=== PATIENT | male | born 1975 | race Caucasian/White ===

== ENCOUNTER 2020-04-20 12:31 | Emergency (ER) | payer OTHER ==
[~2020-04-20] VITALS: Ht 177.8 cm; Wt 90.4 kg
[2020-04-20] MEDS ORDERED: ASPIRIN CHEWABLE 81 MG TABLET. PO ONE (12:45)
--- NOTE | 2020-04-20 13:16 | RAD ---
Exam performed: 2 views of the chest. Indication: Reason: chest pain / Spl. Instructions: / History: Date of Service: 04/20/2020 12:36 PM . Comparison : None available Findings: PA and lateral radiographs of the chest reveal a normal cardiomediastinal contour. The lungs are clear. No pleural fluid is seen. The visualized osseous structures are unremarkable. Impression: No acute cardiopulmonary process seen. Electronically signed by: Elise Woods MD (04/20/2020 1:13 PM) [facility]
[2020-04-20] MEDS ORDERED: diazePAM 5 MG TABLET. PO ONE (14:45)
[2020-04-20] MEDS ORDERED: DEXAMETHASONE SOD PHOS 10 MG/ML VIAL. IV ONE (14:45)
--- NOTE | 2020-04-20 17:27 | PHYS DOC ---
Past History Past Medical History: GERD Past Surgical History: No Surgical History Alcohol Use: None Adult General Chief Complaint Chief Complaint: LOWER EXT PAIN HPI HPI Patient is a 45-year-old previously healthy male who presents to the emergency room complaining of left posterior leg pain. He states that it feels like sharp shooting pains going through the back of his leg. He states he has had sciatica before and this is not the same feeling. He denies it feeling like a cramp. He states that it is been so painful today that he has not been able to walk or do anything productive. Review of Systems Review of Systems General: Denies fever, chills, sweats, fatigue Eyes: Denies drainage, blurred vision, eye redness HENT: Denies rhinorrhea, sore throat, earache Respiratory: Denies cough, shortness of breath, wheezing Cardiac: Denies edema, palpitations, chest pain GI: Denies abdominal pain, Nausea, vomiting MSK: Denies back pain, neck pain Skin: Denies rash, jaundice Neuro: Denies headache, dizziness Psychiatric: Denies SI/HI Current Medications Current Medications Current Medications Medications (Trade) Dose Ordered Sig/Brittny Start Time Stop Time Status Last Admin Dose Admin Aspirin (Aspirin Chewable) 324 mg 1X ONCE 04/20/20 12:45 04/20/20 12:44 DC Dexamethasone Sodium Phosphate (Decadron) 10 mg 1X ONCE 04/20/20 14:45 04/20/20 14:46 DC Diazepam (Valium) 5 mg 1X ONCE 04/20/20 14:45 04/20/20 14:46 DC 04/20/20 14:55 5 MG Allergies Allergies Allergies Coded Allergies Type Severity Reaction Last Updated Verified No Known Drug Allergies 04/20/20 No Physical Exam Physical Exam General: Awake, alert, NAD. Well Nourished, well hydrated. Cooperative HEENT: Atraumatic, EOMI, PERRL, airway patent, moist oral mucosa Neck: Supple, trachea midline Respiratory: CTA bilaterally, normal effort, no wheezing/crackles CV: RRR, no murmur, cap refill <2 GI: Soft, nondistended, nontender, no masses MSK: No obvious deformities Skin: Warm, dry, intact Neuro: A&O x3, speech NL, sensory and motor grossly intact, no focal deficits Psych: Normal affect, normal mood, not suicidal or homicidal Current Patient Data Vital Signs Vital Signs Date Time Temp Pulse Resp B/P (MAP) Pulse Ox O2 Delivery O2 Flow Rate FiO2 04/20/20 15:18 52 16 116/73 (87) 98 Room Air 04/20/20 12:42 97.6 EKG EKG [] Radiology/Procedures Radiology/Procedures [] Course & Med Decision Making Course & Med Decision Making Pertinent Labs and Imaging studies reviewed. (See chart for details) Patient is 45-year-old male who presents to the emergency room complaining of sharp shooting pains down the back of his left leg. He states this is unlike his typical sciatica. It is possible that this could be related to a blood clot and ultrasound was done. Patient was given medication for likely radiculopathy. He denies it being cramping there is no cramping on exam. Patient does not need lab work at this time. US negative. Will treat s ymptomatically. Patient's test results and vitals while in the ED were fully reviewed and discussed with the patient. Patient is stable and at this time does not need admission to the hospital. We have discussed strict return precautions and the importance of following up with their Primary Care Physician. Patient stated understanding and was given an opportunity to ask any questions. Patient is in agreement with plan. Dragon Disclaimer Dragon Disclaimer This electronic medical record was generated, in whole or in part, using a voice recognition dictation system. Departure Departure: Impression: Primary Impression: Left thigh pain Disposition: HOME/RESIDENCE PRIOR TO ADM Condition: STABLE Referrals: AMANUEL GARCIA MD (PCP) Patient Instructions: Pain, Neuropathic Scripts Methocarbamol (ROBAXIN-750) 750 Mg Tablet 1 TAB PO TID for pain for 10 Days, #30 TAB 0 Refills Prov: KARSTEN JARRETT MD 04/20/20 Methylprednisolone (MEDROL) 4 Mg Tab.ds.pk 1 PKG PO UD for inflammation, #1 PKG Prov: KARSTEN JARRETT MD 04/20/20 KARSTEN JARRETT MD Apr 20, 2020 17:27
--- NOTE | 2020-04-20 17:36 | RAD ---
Left Leg Venous Doppler Ultrasound, 04/20/2020 Indication: Left leg pain Comparison: None available Procedure: Real-time grayscale, color flow color duplex Doppler and spectral analysis are obtained with and without compression in the area of the common femoral vein, superficial femoral vein - femoral vein junction, main femoral vein (superficial femoral vein) and popliteal vein. Veins of the proximal calf are also imaged. Findings: There is normal duplex flow, color flow and compressibility of all visualized vein segments. No evidence of deep venous thrombus is present. Impression: Negative venous Doppler of left lower extremity Electronically signed by: Elise Woods MD (04/20/2020 5:34 PM) [facility]
[2020-04-20 17:52] VITALS: BP 123/84
[2020-04-20] MEDS ORDERED: METH-38 PO (17:52)
[2020-04-20] MEDS ORDERED: METH4TAB2 PO (17:52)
== END 2020-04-20 17:56 | disposition home or self-care (01) ==
LOC: ER 12:31
DX: M79.652 Pain in left thigh (principal); K21.9 Gastro-esophageal reflux disease without esophagitis
CPT/HCPCS: 71046; 93971; 99284; 99285

== ENCOUNTER → 2020-06-07 | Outpatient (CLI) | payer OTHER ==
[~2020-06-07] MED LIST: METH-38 PO; METH4TAB2 PO; OMEP20TA63 PO
== END ==
LOC: LAB 08:15
PROVIDERS: ATTEND Nurse Anesthetist, Certified Registered
DX: Z01.812 Encounter for preprocedural laboratory examination (principal); Z20.828 Contact with and (suspected) exposure to other viral communicable diseases; K21.9 Gastro-esophageal reflux disease without esophagitis; Z85.038 Personal history of other malignant neoplasm of large intestine
CPT/HCPCS: U0003

== ENCOUNTER → 2020-06-11 | Day surgery (SDC) | payer OTHER ==
[~2020-06-11] MED LIST changes: +IPRATRPIUM/ALBUTEROL 0.5/2.5MG 3 ML NEBU. NEB PRN; +IV RINGERS SOLUTION,LACTATED 1,000 ML IV SCH; +LIDOCAINE 2% PF 5 ML VIAL. ONE; +MIDAZOLAM HCL PF 2 MG/2 ML VIAL. IV ONE; +ONDANSETRON PF 4 MG/2 ML VIAL. IV PRN; +PROPOFOL 10,000 MCG/ML (20ML) VIAL IV ONE
[2020-06-11 09:20] VITALS: BP 125/78
== END | disposition home or self-care (01) ==
LOC: SURG 07:35
PROVIDERS: ATTEND Emergency Medicine
DX: Z12.11 Encounter for screening for malignant neoplasm of colon (principal); K63.5 Polyp of colon; K63.89 Other specified diseases of intestine; K21.9 Gastro-esophageal reflux disease without esophagitis; K31.7 Polyp of stomach and duodenum; K29.70 Gastritis, unspecified, without bleeding; Z83.71 Family history of colonic polyps; Z80.0 Family history of malignant neoplasm of digestive organs
CPT/HCPCS: 43239; 45380; J2001; J2704; J7120